=== PATIENT | male | born 1995 | race Caucasian/White ===

== ENCOUNTER 2022-04-12 13:58 | Emergency (ER) | payer BC ==
[~2022-04-12] VITALS: Ht 172.7 cm; Wt 91.4 kg
[2022-04-12] MEDS ORDERED: NEOSPORIN OINT 0.9 GM PKT TOP ONE (16:20)
[2022-04-12] MEDS ORDERED: LIDOCAINE 2% MDV 20ML VIAL SC ONE (16:20)
[2022-04-12] MEDS ORDERED: BOOSTRIX/ADACEL VACCINE (DIPHTH/PERTUSS/ACELL/TETANUS) 0.5ML SYR IM.IMMUN ONE (16:20)
[2022-04-12] MEDS ORDERED: CEPHALEXIN 500 MG CAP PO ONE (17:30)
[2022-04-12] MEDS ORDERED: CEPH500C PO (17:57)
[2022-04-12 18:14] VITALS: BP 163/92
== END 2022-04-12 18:35 | disposition home or self-care (01) ==
LOC: EDSEX 13:58 → M ED 13:58
DX: S66.221A Laceration of extensor muscle, fascia and tendon of right thumb at wrist and hand level, initial encounter (principal); S60.412A Abrasion of right middle finger, initial encounter; W01.0XXA Fall on same level from slipping, tripping and stumbling without subsequent striking against object, initial encounter; Z23 Encounter for immunization